=== PATIENT | male | born 1975 | race African-American/Black ===

== ENCOUNTER 2020-10-21 08:27 | Emergency (ER) | payer OTHER ==
[~2020-10-21] VITALS: Ht 172.7 cm; Wt 113.4 kg
[2020-10-21] MEDS ORDERED: cloNIDine HCL 0.1 MG TAB ONE (08:38)
[2020-10-21] MEDS ORDERED: cloNIDine HCL 0.1 MG TAB PO ONE (08:45)
[2020-10-21 09:16] LABS: Basophils # (auto) 0 10 ^3/uL (0-0.2); Basophils % (auto) 0.6 % (0.0-2.0); Eosinophils # (auto) 0.1 10 ^3/uL (0-0.8); Eosinophils % (auto) 1.3 % (0.0-7.0); Hematocrit 43.7 % (41.0-53.0); Hemoglobin 14.9 g/dL (13.5-17.5); Lymphocytes # (auto) 1.9 10 ^3/uL (0.4-5.4); Mean Corpuscular Hemoglobin 33.8 pg (28.0-32.0); Mean Corpuscular Hgb Conc. 34.1 g/dL (32.0-36.0); Mean Corpuscular Volume 98.9 fL (80.0-100.0); Monocytes # (auto) 0.7 10 ^3/uL (0-1.3); Monocytes % (auto) 8.7 % (0.0-12.0); Neutrophils # (auto) 5.4 10 ^3/uL (1.6-8.6); Neutrophils % (auto) 66.4 % (37.0-80.0); Nucleated Red Blood Cells % 0.1 %; Platelet Count (auto) 255 10^3/uL (140-450); Red Blood Cells 4.42 10^6/uL (4.5-5.90); Red Cell Distribution Width 13.3 % (11.8-14.3); White Blood Cell 8.2 10^3/uL (4.4-10.8)
[2020-10-21 09:43] LABS: Albumin 3.9 g/dL (3.4-5.0); Calcium 9.2 mg/dL (8.5-10.1); Potassium 3.9 mmol/L (3.5-5.1)
[2020-10-21 09:45] LABS: BUN/Creatinine Ratio 11.1
[2020-10-21 09:47] LABS: Bilirubin, Total 0.6 mg/dL (0.2-1.0); Total Protein 7.7 g/dL (6.4-8.2)
[2020-10-21 10:58] VITALS: BP 153/97
== END 2020-10-21 11:24 | disposition home or self-care (01) ==
LOC: ER 08:27
DX: I10 Essential (primary) hypertension (principal); H00.024 Hordeolum internum left upper eyelid
CPT/HCPCS: 36415; 70450; 71045; 80053; 83880; 85025; 93005

== ENCOUNTER 2020-10-23 08:53 | Emergency (ER) | payer OTHER ==
[~2020-10-23] VITALS: Ht 172.7 cm; Wt 113.4 kg
[2020-10-23] MEDS ORDERED: cloNIDine HCL 0.1 MG TAB PO ONE (09:15)
[2020-10-23 09:34] LABS: Basophils # (auto) 0 10 ^3/uL (0-0.2); Basophils % (auto) 0.6 % (0.0-2.0); Eosinophils # (auto) 0.1 10 ^3/uL (0-0.8); Eosinophils % (auto) 0.8 % (0.0-7.0); Hematocrit 45.6 % (41.0-53.0); Hemoglobin 15.5 g/dL (13.5-17.5); Lymphocytes # (auto) 1.4 10 ^3/uL (0.4-5.4); Lymphocytes % (auto) 18.6 % (10.0-50.0); Mean Corpuscular Hemoglobin 33.6 pg (28.0-32.0); Mean Corpuscular Hgb Conc. 33.9 g/dL (32.0-36.0); Mean Corpuscular Volume 98.9 fL (80.0-100.0); Monocytes # (auto) 0.7 10 ^3/uL (0-1.3); Monocytes % (auto) 8.6 % (0.0-12.0); Neutrophils # (auto) 5.5 10 ^3/uL (1.6-8.6); Neutrophils % (auto) 71.4 % (37.0-80.0); Platelet Count (auto) 256 10^3/uL (140-450); Red Blood Cells 4.61 10^6/uL (4.5-5.90); Red Cell Distribution Width 13.5 % (11.8-14.3); White Blood Cell 7.7 10^3/uL (4.4-10.8)
[2020-10-23 09:51] LABS: INR 1.01 (0.9-1.15); Partial Thromboplastin Time 32.8 sec (23.0-31.2)
[2020-10-23 09:54] LABS: Anion Gap 4 (5-15); Blood Urea Nitrogen 14 mg/dL (7-18); Calcium 8.6 mg/dL (8.5-10.1); Carbon Dioxide 27 mmol/L (21-32); Chloride 109 mmol/L (98-107); Glucose 91 mg/dL (74-106); Magnesium 2.4 mg/dL (1.6-2.6); Potassium 3.7 mmol/L (3.5-5.1); Sodium 140 mmol/L (136-145)
[2020-10-23 10:00] LABS: Alanine Aminotransferase 26 U/L (16-61); Alkaline Phosphatase 68 U/L (45-117); Aspartate Aminotransferase 16 U/L (15-37); BUN/Creatinine Ratio 12.4; Bilirubin, Total 0.8 mg/dL (0.2-1.0); GFR African American 90 mL/min; GFR Non-African American 75 mL/min; Total Protein 8.3 g/dL (6.4-8.2)
[2020-10-23] MEDS ORDERED: amLODIPine BESYLATE 5 MG TAB PO ONE (10:00)
[2020-10-23 11:02] VITALS: BP 183/101
[2020-10-23] MEDS ORDERED: hydrALAZINE HCL 10 MG TAB PO ONE (11:30)
== END 2020-10-23 12:55 | disposition home or self-care (01) ==
LOC: ER 08:53
DX: I16.0 Hypertensive urgency (principal); I10 Essential (primary) hypertension
CPT/HCPCS: 36415; 71045; 80053; 83735; 83880; 84484; 85025; 85610; 85730

== ENCOUNTER 2020-11-19 15:16 | Emergency (ER) | payer OTHER ==
[~2020-11-19] VITALS: Ht 172.7 cm; Wt 107.5 kg
[2020-11-19] MEDS ORDERED: cloNIDine HCL 0.1 MG TAB PO ONE (15:30)
[2020-11-19 17:09] LABS: Basophils # (auto) 0 10 ^3/uL (0-0.2); Basophils % (auto) 0.5 % (0.0-2.0); Eosinophils # (auto) 0.1 10 ^3/uL (0-0.8); Hematocrit 43.9 % (41.0-53.0); Hemoglobin 14.7 g/dL (13.5-17.5); Lymphocytes # (auto) 2.1 10 ^3/uL (0.4-5.4); Lymphocytes % (auto) 22.7 % (10.0-50.0); Mean Corpuscular Hemoglobin 32.8 pg (28.0-32.0); Mean Corpuscular Hgb Conc. 33.5 g/dL (32.0-36.0); Mean Corpuscular Volume 97.8 fL (80.0-100.0); Monocytes # (auto) 0.8 10 ^3/uL (0-1.3); Monocytes % (auto) 8.9 % (0.0-12.0); Neutrophils # (auto) 6.1 10 ^3/uL (1.6-8.6); Neutrophils % (auto) 66.9 % (37.0-80.0); Nucleated Red Blood Cells % 0.1 %; Platelet Count (auto) 265 10^3/uL (140-450); Red Blood Cells 4.49 10^6/uL (4.5-5.90); Red Cell Distribution Width 13.6 % (11.8-14.3); White Blood Cell 9.1 10^3/uL (4.4-10.8)
[2020-11-19 17:29] LABS: Calcium 8.7 mg/dL (8.5-10.1); Potassium 3.4 mmol/L (3.5-5.1)
[2020-11-19 17:33] VITALS: BP 149/99
[2020-11-19 17:34] LABS: BUN/Creatinine Ratio 15.4
== END 2020-11-19 17:53 | disposition home or self-care (01) ==
LOC: ER 15:16
DX: F41.1 Generalized anxiety disorder (principal); I10 Essential (primary) hypertension; F12.10 Cannabis abuse, uncomplicated
CPT/HCPCS: 36415; 80048; 84484; 85025

== ENCOUNTER 2020-12-14 07:39 | Emergency (ER) | payer OTHER ==
[~2020-12-14] VITALS: Ht 172.7 cm; Wt 109.8 kg
[2020-12-14 07:40] VITALS: BP 178/98
== END 2020-12-14 08:34 | disposition home or self-care (01) ==
LOC: ER 07:39
DX: M27.2 Inflammatory conditions of jaws (principal); I10 Essential (primary) hypertension; F12.10 Cannabis abuse, uncomplicated

== ENCOUNTER 2021-02-02 07:52 | Emergency (ER) | payer OTHER ==
[~2021-02-02] VITALS: Ht 172.7 cm; Wt 109.8 kg
[2021-02-02 09:18] LABS: Basophils # (auto) 0.1 10 ^3/uL (0-0.2); Basophils % (auto) 0.7 % (0.0-2.0); Eosinophils # (auto) 0.1 10 ^3/uL (0-0.8); Eosinophils % (auto) 1.7 % (0.0-7.0); Hemoglobin 15.3 g/dL (13.5-17.5); Lymphocytes # (auto) 2.1 10 ^3/uL (0.4-5.4); Lymphocytes % (auto) 24.6 % (10.0-50.0); Mean Corpuscular Hgb Conc. 33.3 g/dL (32.0-36.0); Monocytes # (auto) 0.7 10 ^3/uL (0-1.3); Monocytes % (auto) 8.8 % (0.0-12.0); Neutrophils # (auto) 5.5 10 ^3/uL (1.6-8.6); Neutrophils % (auto) 64.2 % (37.0-80.0); Nucleated Red Blood Cells % 0.2 %; Platelet Count (auto) 281 10^3/uL (140-450); Red Blood Cells 4.64 10^6/uL (4.5-5.90); Red Cell Distribution Width 13.5 % (11.8-14.3); White Blood Cell 8.5 10^3/uL (4.4-10.8)
[2021-02-02 09:20] VITALS: BP 163/89
[2021-02-02 09:37] LABS: Albumin 3.8 g/dL (3.4-5.0); Calcium 8.8 mg/dL (8.5-10.1); Potassium 3.7 mmol/L (3.5-5.1)
[2021-02-02 09:42] LABS: BUN/Creatinine Ratio 13.3; Bilirubin, Total 0.6 mg/dL (0.2-1.0); Total Protein 7.9 g/dL (6.4-8.2)
== END 2021-02-02 09:54 | disposition home or self-care (01) ==
LOC: ER 07:52
DX: I10 Essential (primary) hypertension (principal); F41.8 Other specified anxiety disorders
CPT/HCPCS: 36415; 71046; 80053; 84484; 85025; 93005

== ENCOUNTER 2021-03-01 07:03 | Inpatient (IN) | payer OTHER ==
[~2021-03-01] VITALS: Ht 172.7 cm; Wt 109.7 kg
[2021-03-01] MEDS ORDERED: ASPirin 81 mg TAB PO ONE (07:15)
[2021-03-01 08:15] LABS: Basophils # (auto) 0.1 10 ^3/uL (0-0.2); Basophils % (auto) 0.7 % (0.0-2.0); Eosinophils # (auto) 0.2 10 ^3/uL (0-0.8); Eosinophils % (auto) 2.4 % (0.0-7.0); Hematocrit 43.9 % (41.0-53.0); Hemoglobin 14.8 g/dL (13.5-17.5); Lymphocytes # (auto) 2.3 10 ^3/uL (0.4-5.4); Lymphocytes % (auto) 28.8 % (10.0-50.0); Mean Corpuscular Hemoglobin 33.1 pg (28.0-32.0); Mean Corpuscular Hgb Conc. 33.8 g/dL (32.0-36.0); Mean Corpuscular Volume 98.1 fL (80.0-100.0); Monocytes # (auto) 0.9 10 ^3/uL (0-1.3); Neutrophils # (auto) 4.5 10 ^3/uL (1.6-8.6); Neutrophils % (auto) 57.1 % (37.0-80.0); Nucleated Red Blood Cells % 0.1 %; Red Blood Cells 4.48 10^6/uL (4.5-5.90); Red Cell Distribution Width 13.4 % (11.8-14.3); White Blood Cell 7.9 10^3/uL (4.4-10.8)
[2021-03-01 08:33] LABS: Albumin 3.7 g/dL (3.4-5.0); Calcium 8.7 mg/dL (8.5-10.1); Potassium 3.6 mmol/L (3.5-5.1)
[2021-03-01 08:38] LABS: BUN/Creatinine Ratio 16.4; Bilirubin, Total 0.3 mg/dL (0.2-1.0); Total Protein 7.6 g/dL (6.4-8.2)
[2021-03-01] MEDS ORDERED: ENOXAPARIN SOD 120 MG/0.8 ML SYRINGE SC ONE (09:30)
[2021-03-01] MEDS ORDERED: ACETAMINOPHEN 500 MG TAB PO PRN (10:15)
[2021-03-01] MEDS ORDERED: HYDROcodone-ACET 5/325MG TAB PO PRN (10:15)
[2021-03-01] MEDS ORDERED: hydrALAZINE HCL 20 MG/ML VL IV PRN (10:15)
[2021-03-01] MEDS ORDERED: NITROGLYCERIN 0.4 MG SL TAB SL PRN (10:15)
[2021-03-01] MEDS ORDERED: MORPHINE SULFATE INJECTION 2 MG/ML SYRG IV PRN ×2 (10:15)
[2021-03-01] MEDS ORDERED: ONDANSETRON HCL 4 MG/2 ML VIAL IV PRN (10:15)
[2021-03-01 11:17] LABS: Urine Bacteria NONE SEEN /hpf (None Seen); Urine Blood Negative /uL (Negative); Urine Specific Gravity 1.011 (1.001-1.035); Urine WBC <1 /hpf (0 - 3)
[2021-03-01] MEDS ORDERED: AMLO-489 PO (14:46)
[2021-03-01 16:00] VITALS: BP 140/84
[2021-03-01] MEDS ORDERED: HYDR25TA5 PO (17:07)
[2021-03-01] MEDS ORDERED: LOSA-39 PO (17:07)
[2021-03-01 22:00] VITALS: BP 142/87
[2021-03-01] MEDS: DOCUSATE SOD 100 MG CAP PO SCH (22:00)
[2021-03-01] MEDS: ATORVASTATIN 20 MG TAB PO SCH (22:26)
[2021-03-01] MEDS: METOPROLOL TARTRATE 25 MG TAB PO SCH (22:27)
[2021-03-02 05:27] LABS: Basophils # (auto) 0 10 ^3/uL (0-0.2); Basophils % (auto) 0.4 % (0.0-2.0); Eosinophils # (auto) 0.2 10 ^3/uL (0-0.8); Eosinophils % (auto) 2.5 % (0.0-7.0); Hematocrit 44.8 % (41.0-53.0); Hemoglobin 15.3 g/dL (13.5-17.5); Lymphocytes # (auto) 2.8 10 ^3/uL (0.4-5.4); Lymphocytes % (auto) 32.5 % (10.0-50.0); Mean Corpuscular Hemoglobin 33.6 pg (28.0-32.0); Mean Corpuscular Hgb Conc. 34.1 g/dL (32.0-36.0); Mean Corpuscular Volume 98.4 fL (80.0-100.0); Monocytes # (auto) 0.9 10 ^3/uL (0-1.3); Monocytes % (auto) 11.1 % (0.0-12.0); Neutrophils # (auto) 4.5 10 ^3/uL (1.6-8.6); Neutrophils % (auto) 53.5 % (37.0-80.0); Nucleated Red Blood Cells % 0.1 %; Red Blood Cells 4.55 10^6/uL (4.5-5.90); Red Cell Distribution Width 13.2 % (11.8-14.3); White Blood Cell 8.5 10^3/uL (4.4-10.8)
[2021-03-02 05:35] LABS: INR 0.99 (0.9-1.15); Partial Thromboplastin Time 34.7 sec (23.0-31.2)
[2021-03-02 05:42] LABS: Calcium 8.7 mg/dL (8.5-10.1); Potassium 3.5 mmol/L (3.5-5.1)
[2021-03-02 05:48] LABS: BUN/Creatinine Ratio 13.1
[2021-03-02 08:00] VITALS: BP 150/92
[2021-03-02] MEDS: ASPirin-EC 81 mg tab PO SCH (08:32)
[2021-03-02] MEDS: FAMOTIDINE 20 MG TAB PO SCH (08:32)
[2021-03-02] MEDS ORDERED: hydrALAZINE HCL 20 MG/ML VL ONE (08:54)
[2021-03-02] MEDS ORDERED: hydrALAZINE HCL 20 MG/ML VL IV ONE (09:00)
[2021-03-02 09:54] VITALS: BP 169/101
[2021-03-02] MEDS: DOCUSATE SOD 100 MG CAP PO SCH ×2 (10:00→21:43)
[2021-03-02] MEDS: METOPROLOL TARTRATE 25 MG TAB PO SCH ×2 (10:00→21:43)
[2021-03-02] MEDS: LISINOPRIL 10 MG TAB PO SCH (11:42)
[2021-03-02 12:00] VITALS: BP 126/78
[2021-03-02] MEDS ORDERED: POTASSIUM CHL 10 Meq TABLET PO ONE (14:45)
[2021-03-02] MEDS ORDERED: FUROSEMIDE 20 MG/2 ML VIAL IV ONE (14:45)
[2021-03-02 16:00] VITALS: BP 152/98
[2021-03-02] MEDS: ATORVASTATIN 20 MG TAB PO SCH (21:43)
[2021-03-02 22:00] VITALS: BP 152/95
[2021-03-03 01:54] VITALS: BP 152/59
[2021-03-03 05:00] VITALS: BP 145/87
[2021-03-03 05:42] LABS: Magnesium 2.6 mg/dL (1.6-2.6); Potassium 3.9 mmol/L (3.5-5.1)
[2021-03-03 05:43] LABS: BUN/Creatinine Ratio 17.7
[2021-03-03 09:00] VITALS: BP 149/107
[2021-03-03] MEDS ORDERED: POTASSIUM CHL 10 Meq TABLET PO SCH (10:00)
[2021-03-03] MEDS ORDERED: FUROSEMIDE 20 MG TAB PO SCH (10:00)
[2021-03-03] MEDS: DOCUSATE SOD 100 MG CAP PO SCH (10:25)
[2021-03-03] MEDS: ASPirin-EC 81 mg tab PO SCH (10:25)
[2021-03-03] MEDS: FAMOTIDINE 20 MG TAB PO SCH (10:26)
[2021-03-03] MEDS: LISINOPRIL 10 MG TAB PO SCH (10:26)
[2021-03-03] MEDS: METOPROLOL TARTRATE 25 MG TAB PO SCH (10:27)
[2021-03-03 12:29] VITALS: BP 153/95
== END 2021-03-03 13:35 | disposition left against medical advice (07) | DRG 194 ==
LOC: ER 07:03 → TELE 10:05 → TELE-WESTW 14:35 → WEST WING 03-03 12:58
PROVIDERS: ADMIT Nurse Practitioner Acute Care; ATTEND Internal Medicine
DX: I11.0 Hypertensive heart disease with heart failure (principal); I21.A1 Myocardial infarction type 2; I50.43 Acute on chronic combined systolic (congestive) and diastolic (congestive) heart failure; E66.9 Obesity, unspecified; G47.33 Obstructive sleep apnea (adult) (pediatric); F12.90 Cannabis use, unspecified, uncomplicated; F41.0 Panic disorder [episodic paroxysmal anxiety]; F40.240 Claustrophobia; Z53.29 Procedure and treatment not carried out because of patient's decision for other reasons; Z82.49 Family history of ischemic heart disease and other diseases of the circulatory system; Z72.0 Tobacco use; Z68.36 Body mass index [BMI] 36.0-36.9, adult
CPT/HCPCS: 36415; 71045; 80048; 80053; 80061; 81001; 83735; 84443; 84484; 85025; 85610; 85730; 86141; 87426; 93005; 93017; 93306; 96372; G0378